=== PATIENT | female | born 1985 | race Caucasian/White ===

== ENCOUNTER → 2025-09-27 15:47 | Outpatient (REF) | payer OTHER, SELFPAY | LOC: RAD 15:47 | PROVIDERS: ATTENDING PHYSICIAN Physician Assistant Medical | DX: Z76.89 Persons encountering health services in other specified circumstances (principal); R10.11 Right upper quadrant pain; R10.A1 Flank pain, right side | CPT/HCPCS: 71046 ==

== ENCOUNTER → 2025-10-07 13:47 | Outpatient (REF) | payer OTHER, SELFPAY | LOC: RAD 13:47 | PROVIDERS: ATTENDING PHYSICIAN Physician Assistant Medical | DX: Z76.89 Persons encountering health services in other specified circumstances (principal); R10.11 Right upper quadrant pain; R10.A1 Flank pain, right side; R14.0 Abdominal distension (gaseous) | CPT/HCPCS: 74178; Q9967 ==